=== PATIENT | female | born 1980 | race Two or more races ===

== ENCOUNTER 2017-04-06 10:25 | Day surgery (SDC) | payer MEDICAID ==
[2017-04-04 17:13] LABS: ADD UMIC YES; UR ASCORBIC ACID NEGATIVE (NEGATIVE); UR BILIRUBIN (Dip) NEGATIVE (NEGATIVE); UR BLOOD (Dip) 1+ mg/dL (NEGATIVE); UR CLARITY CLEAR (CLEAR); UR COLOR YELLOW (YELLOW); UR GLUCOSE (Dip) NEGATIVE (NEGATIVE); UR KETONES (Dip) NEGATIVE (NEGATIVE); UR LEUKOCYTE ESTERASE (Dip) NEGATIVE Leu/ul (NEGATIVE); UR NITRITE (Dip) NEGATIVE (NEGATIVE); UR RBC 13 /HPF (0-5); UR SPECIFIC GRAVITY (Dip) 1.023 (1.003-1.030); UR SQUAMOUS EPITHELIAL CELL FEW /HPF (FEW); UR TOTAL PROTEIN (Dip) NEGATIVE (NEGATIVE); UR UROBILINOGEN (Dip) NEGATIVE (NEGATIVE)
[2017-04-04 17:22] LABS: BASOPHIL # 0.1 10^3/ul (0.0-0.1); BASOPHILS % 0.7 % (0.0-2.0); EOSINOPHILS # 0.9 10^3/ul (0.0-0.5); EOSINOPHILS % 11.2 % (0.0-7.0); HEMATOCRIT 34.9 % (37.0-47.0); HEMOGLOBIN 11.4 g/dl (12.0-16.0); LYMPHOCYTES # 1.5 10^3/ul (0.8-2.9); LYMPHOCYTES % 18.1 % (15.0-51.0); MEAN CORPUSCULAR HEMOGLOBIN 25.5 pg (29.0-33.0); MEAN CORPUSCULAR HGB CONC 32.7 g/dl (32.0-37.0); MEAN CORPUSCULAR VOLUME 78.1 fl (82.0-101.0); MEAN PLATELET VOLUME 9.1 fl (7.4-10.4); MONOCYTE # 0.5 10^3/ul (0.3-0.9); MONOCYTES % 5.9 % (0.0-11.0); NEUTROPHIL # 5.2 10^3/ul (1.6-7.5); NEUTROPHILS % 63.9 % (39.0-77.0); PLATELET COUNT 342 10^3/UL (140-415); RED BLOOD COUNT 4.47 10^6/ul (4.20-5.40); RED CELL DISTRIBUTION WIDTH 13.9 % (11.5-14.5); WHITE BLOOD COUNT 8.2 10^3/ul (4.8-10.8)
[2017-04-04 17:26] LABS: INR 0.99; PARTIAL THROMBOPLASTIN TIME 30.3 Sec (25.0-35.0); PROTIME 13.2 Sec (11.9-14.9)
[2017-04-04 17:31] LABS: ALBUMIN/GLOBULIN RATIO 1.08; BILIRUBIN,INDIRECT 0.2 mg/dl (0-1.1); BILIRUBIN,TOTAL 0.2 mg/dl (0.2-1.3); TOTAL PROTEIN 7.7 g/dl (6.1-8.1)
[2017-04-04 17:39] LABS: CALCIUM 8.7 mg/dl (8.4-10.2); CREATININE 0.88 mg/dl (0.44-1.00); POTASSIUM 3.8 mmol/L (3.5-5.1)
[2017-04-05 13:50] VITALS: Ht 149.9 cm; Wt 55.5 kg
--- NOTE | 2017-04-05 17:17 | PREOPHP ---
DATE OF ADMISSION: 04/06/2017 She is to be admitted tomorrow, 04/06/2017, for laparoscopic bilateral tubal ligation. HISTORY OF PRESENT ILLNESS: This is a 37-year-old female 2, para 2, with a history of 2 nor mal vaginal deliveries whose LMP was 03/25/2017, consulted for sterilization. Alternatives, benefit s, risks and possible complications were discussed in detail as well as 1% failure rate of this proc edure. She was allowed to ask questions. All of her questions were answered to her satisfaction, a nd she signed the appropriate surgical informed consents. The patient currently has an IUD for cont raception. PAST MEDICAL HISTORY: The patient denies any medical problems. She has a history of epigastric her deep. ALLERGIES: SHE HAS NO KNOWN ALLERGIES. MEDICATIONS: She takes no medications. REVIEW OF SYSTEMS: A 12-point review of systems is noncontributory. FAMILY HISTORY: Noncontributory. PHYSICAL EXAMINATION: GENERAL: Well-developed and nourished, in no distress. Height is 4 feet 11, weight 125 pounds. BM I is 24. VITAL SIGNS: Showed temperature to be 98, pulse is 79 per minute, blood pressure is 105/62, respira tions are 16 per minute. HEENT: Within normal limits. Pupils are PERRLA. NECK: Supple. Thyroid is not palpable. BREASTS: Show no masses or lumps. LUNGS: Clear to percussion and auscultation. HEART: Revealed normal sinus rhythm without a murmur. ABDOMEN: Soft without organomegalies or hernias. PELVIC: Normal external genitalia. Vagina is normal. Bimanual exam: Uterus small. There are no adnexal masses present. EXTREMITIES: Lower extremities within normal limits. NEUROLOGIC: Also normal. IMPRESSION: Voluntary sterilization. PLAN: The patient is to be admitted 04/06/2017 for a laparoscopic bilateral tubal ligation and poss ible laparotomy if necessary. Dictated By: DELFINO DEAN/MING Conf#: [id number] DID#: [id number]
[2017-04-06] VITALS (15 sets, daily range): BP systolic 74–118; BP diastolic 48–67; PULSE 72–96; RESP 16–20
[~2017-04-06] VITALS: Ht 149.9 cm; Wt 55.5 kg
[2017-04-06] MEDS ORDERED: BUPIVACAINE 0.5%/EPI (SDV) 30 ML INJ ONE (12:14)
[2017-04-06] MEDS ORDERED: PROPOFOL 60 ML ONE (12:42)
[2017-04-06] MEDS ORDERED: ROCURONIUM 50 MG INJ ONE (12:42)
[2017-04-06] MEDS ORDERED: LIDOCAINE 2% (SDV) 5 ML INJ ONE (12:42)
[2017-04-06] MEDS ORDERED: DEXAMETHASONE 4 MG/ML 1 ML INJ ONE (12:46)
[2017-04-06] MEDS ORDERED: FENTAnyl 50 MCG/ML VIAL ONE (12:46)
[2017-04-06] MEDS ORDERED: KETOROLAC 30 MG INJ ONE (12:46)
[2017-04-06] MEDS ORDERED: ONDANSETRON 4 MG INJ ONE (12:47)
[2017-04-06] MEDS ORDERED: LABETALOL HCL 20MG INJ IV PRN (13:00)
[2017-04-06] MEDS ORDERED: ALBUTEROL 0.083% (NEB) 2.5 MG/3 ML AMP HHN PRN (13:00)
[2017-04-06] MEDS ORDERED: METOCLOPRAMIDE 10 MG INJ IV PRN (13:00)
[2017-04-06] MEDS ORDERED: FENTAnyl 50 MCG/ML VIAL IV PRN ×3 (13:00)
[2017-04-06] MEDS ORDERED: hydrALAzine 20 MG INJ IV PRN (13:00)
[2017-04-06] MEDS ORDERED: MEPERIDINE 25 MG INJ IV PRN (13:00)
[2017-04-06] MEDS ORDERED: MIDAZOLAM 1 MG/ML 2 ML INJ IV PRN (13:00)
[2017-04-06] MEDS ORDERED: HYDROmorphONE (0.2 MG/ML) 10ML SYG IV PRN ×3 (13:00)
[2017-04-06] MEDS ORDERED: OXYCODONE/ACETAMINOPHEN (5/325) TAB PO PRN ×4 (13:00→14:30)
[2017-04-06] MEDS ORDERED: ONDANSETRON 4 MG INJ IV PRN ×2 (13:00→14:30)
[2017-04-06] MEDS ORDERED: EPHEDrine SULFATE 50 MG/5 ML SYG IV PRN (13:00)
[2017-04-06] MEDS ORDERED: KETOROLAC 30 MG INJ IV PRN (13:00)
[2017-04-06] MEDS ORDERED: DIPHENHYDRAMINE 50 MG INJ IV PRN (13:00)
[2017-04-06] MEDS ORDERED: ACETAMINOPHEN 1000MG/100ML IV 100 ML ONE (13:09)
[2017-04-06] MEDS ORDERED: NEOSTIGMINE 3 MG/3 ML SYRINGE ONE (13:09)
[2017-04-06] MEDS ORDERED: GLYCOPYRROLATE 0.4 MG INJ ONE (13:09)
[2017-04-06] MEDS ORDERED: CEFAZOLIN 1 GM INJ ONE (13:13)
[2017-04-06] MEDS ORDERED: EPINEPHrine 0.1 MG/ML SYG ONE (13:53)
[2017-04-06] MEDS ORDERED: ATROPINE 1 MG/10 ML SYRINGE ONE (13:53)
[2017-04-06] MEDS ORDERED: SUGAMMADEX SODIUM 200 MG/2 ML VIAL IV ONE (13:53)
[2017-04-06] MEDS ORDERED: LACTATED RINGER'S 1,000 ML IV SCH (14:20)
--- NOTE | 2017-04-06 14:20 | SIPON ---
Date/Time of Note Date/Time of Note See dictated note DATE: 04/06/17 TIME: 14:10 Operative Report Preoperative Diagnosis Voluntary sterilization Postoperative Diagnosis Same. Operation/Procedure Performed Laparoscopic bilateral tubal ligation. Surgeon Dr.Carlos Remedios Sheikh MD assistant professor None Anesthesia: general Estimated blood loss: minimal Transfusion Required none Specimen None. Grafts/Implants none Complications The patient experienced profound bradycardia right after neumoperitoneum was established. The procedure was continued after the patient was stabilized. DELFINO SHEIKH MD Apr 06, 2017 14:20
--- NOTE | 2017-04-06 14:25 | PD.PPDC ---
[facility] Discharge Instruction Diagnosis Final Diagnosis: Voluntary sterilization Condition Patient Condition: Good Diet Diet: Resume Regular Diet Activity/Restrictions Activity: Normal Activity May Shower Restrictions: No Exercising No Lifting Nothing in the Vagina No Rosenberg Wound/Drain Care Instructions Wound/Drain Care Instructions: Wash with soap and water Keep clean and dry Follow-up Follow-up with Physician: 2, Week/Weeks Return to clinic for [employer] Instructions: Fever greater than 101 Worsening abdominal pain Excessive Vaginal Bleeding Unable to tolerate diet Surgical Instructions: Incisional Drainage Incisional Redness DELFINO ARAGON MD Apr 06, 2017 14:25
[2017-04-06] MEDS ORDERED: IBUPROFEN 600 MG TAB PO PRN (14:30)
[2017-04-06] MEDS ORDERED: ACETAMINOPHEN 325 MG TAB PO PRN (14:30)
[2017-04-06] MEDS ORDERED: morphine 2 MG INJ IV PRN (14:30)
--- NOTE | 2017-04-06 15:26 | OPR ---
DATE OF OPERATION: PREOPERATIVE DIAGNOSIS: Voluntary sterilization. The patient requested sterilization. POSTOPERATIVE DIAGNOSIS: Voluntary sterilization. The patient requested sterilization. PROCEDURE: Laparoscopic bilateral tubal ligation. SURGEON: Delfino Sheikh MD. ANESTHESIOLOGIST: general Dinah. ESTIMATED BLOOD LOSS: None. COMPLICATIONS: The patient developed profound bradycardia at the time pneumoperitoneum was established. She recuperated and the procedure continued normally. ESTIMATED BLOOD LOSS: Negligible. SPECIMENS: None. PROCEDURE AND FINDINGS: With the patient under general anesthesia with endotracheal intubation, she was laid on the table in the dorsal lithotomy position. Her perineum and vagina were prepped with Betadine and Borges catheter was inserted. The abdomen was prepped with ChloraPrep and after 3 minutes, she was dressed with sterile dressings as usual. A small 5 mm incision was done at the level of the umbilicus and a Veress needle was inserted while we were tenting up the anterior abdominal wall. Once the tip of the needle was ascertained to be intraperitoneal by the hanging drop of saline technique, it was then connected to the CO2 insufflator. The pneumoperitoneum was obtained and right after removing the Veress needle the anesthesiologist, Dr. Vasquez, noticed profound bradycardia. The procedure was stopped. The patient was stabilized and after a few minutes, once the cardiac rhythm was normal as well as her vital signs, the procedure was continued. A 5 mm trocar was placed in. It had actually been placed in right after Dr. Vasquez realized there was this problem and the pneumoperitoneum was then deflated. So, the pneumoperitoneum was reestablished. The 5 mm laparoscope was inserted through this port. The abdomen and the pelvis looked normal. A second port was placed under direct vision in the hypogastric area with another 5 mm port. Through this port now the Kleppinger clamp was inserted and attached to the gyrus devise. The gyrus was set at 35 west of current. The right tube was picked up in its mid portion and burned through and through for 1.5 cm. The same was done on the contralateral side. Pictures were taken for documentation. There was no bleeding or any problems. The upper abdomen was also explored with a scope with normal findings. All the instruments were then removed from the patient's abdomen as well as, as much CO2 as possible. The incisions were infiltrated with 0.5% Marcaine with epinephrine with a total of 10 mL and then closed with 4-0 Monocryl. Band-Aids were applied and patient was taken to recovery room with all vital signs stable. Cardiac rhythm was normal at 80 per minute and blood pressure was normal. Needle, sponge and instrument count at the end of the procedure was correct twice. Dictated By: DELFINO SHEIKH MD CR/MING Conf#: [id number] DID#: [id number] CC: PAUL VASQUEZ MD;*EndCC* MTDD
== END 2017-04-06 16:55 | disposition home or self-care (01) ==
LOC: SDS 10:25
PROVIDERS: ATTEND Specialist
DX: Z30.2 Encounter for sterilization (principal)
CPT/HCPCS: 58670; 80053; 81001; 84703; 85025; 85610; 85730; 86850; 86900; 86901; J0171; J0461; J0690; J1100; J1885; J2175; J2405; J2765; J3010; Z7512; Z7610; J0131; J2710